=== PATIENT | male | born 1995 | race Caucasian/White ===

== ENCOUNTER 2017-12-26 13:31 | Emergency (ER) | payer BC, OTHER ==
[2017-12-26] MEDS ORDERED: Gelfoam 12-7 ADSORBABL SPONGE* 1 EA SPONGE TOPICAL ONE (14:10)
[2017-12-26 14:11] VITALS: BP 143/81
--- NOTE | 2017-12-26 14:31 | ED ---
Laceration/Wound HPI - HPI Summary HPI Summary: 22-year-old male presents with skin avulsion to the tip of left thumb. He states that cut it on a knife at work. The area continues to bleed. Last tetanus was 2 years ago. No other injury. Has full range of motion of thumb. No numbness or tingling. No medical conditions. - History of Current Complaint Pain Intensity: 0 <Xiomy Klein - Last Filed: 12/26/17 14:36> <Jamal Arce - Last Filed: 12/27/17 07:10> - History of Current Complaint Stated Complaint: CUT L THUMB Time Seen by Provider: 12/26/17 14:09 - Allergy/Home Medications Allergies/Adverse Reactions: Allergies Allergy/AdvReac Type Severity Reaction Status Date / Time Adhesive Tape Allergy Itching Verified 12/26/17 14:11 Home Medications: Home Medications NK [No Home Medications Reported] 12/26/17 [History Confirmed 12/26/17] PMH/Surg Hx/FS Hx/Imm Hx Endocrine/Hematology History: Denies: Hx Anticoagulant Therapy Respiratory History: Denies: Hx Asthma - Immunization History Date of Tetanus Vaccine: 2007 Infectious Disease History: No Infectious Disease History: Denies: Traveled Outside the [place] in Last 30 Days - Family History Known Family History: Positive: None - Social History Alcohol Use: Occasionally Hx Substance Use: No Substance Use Type: Reports: None Hx Tobacco Use: No Smoking Status (MU): Never Smoked Tobacco <Xiomy Klein - Last Filed: 12/26/17 14:36> Review of Systems Negative: Fever Negative: Chest Pain Negative: Shortness Of Breath Positive: Other - thumb skin avulsion All Other Systems Reviewed And Are Negative: Yes <Xiomy Klein - Last Filed: 12/26/17 14:36> Physical Exam Triage Information Reviewed: Yes Vital Signs On Initial Exam: Initial Vitals Temp Pulse Resp BP Pulse Ox 98.2 F 89 16 143/81 99 12/26/17 14:08 12/26/17 14:08 12/26/17 14:08 12/26/17 14:08 12/26/17 14:08 Vital Signs Reviewed: Yes Appearance: Positive: Well-Appearing Skin: Positive: Warm, Dry, Other - 1cm skin avulsion tip of left thumb near end of nail, not involving nailbed Head/Face: Positive: Normal Head/Face Inspection Eyes: Positive: Normal, Conjunctiva Clear ENT: Positive: Pharynx normal Respiratory/Lung Sounds: Positive: Clear to Auscultation, Breath Sounds Present Cardiovascular: Positive: Normal, RRR Musculoskeletal: Positive: Strength/ROM Intact - left thumb, Other - capillary refill<2 secs Neurological: Positive: Normal Psychiatric: Positive: Normal <Xiomy Klein - Last Filed: 12/26/17 14:36> Vital Signs On Initial Exam: Initial Vitals Temp Pulse Resp BP Pulse Ox 98.2 F 89 16 143/81 99 12/26/17 14:08 12/26/17 14:08 12/26/17 14:08 12/26/17 14:08 12/26/17 14:08 <Jamal Arce - Last Filed: 12/27/17 07:10> Procedures - Laceration/Wound Repair 1 Location: Other - left thumb Description: Irregular Length, Depth and Shape: 1cm skin avulsion of left thumb Irrigated w/ Saline (ccs): 100 Closure: Skin Adhesive - gelfoam Sterile Dressing Applied?: No - gelfoam, tube guaze, coband <Xiomy Klein - Last Filed: 12/26/17 14:36> Diagnostics - Vital Signs Vital Signs Temp Pulse Resp BP Pulse Ox 12/26/17 14:08 98.2 F 89 16 143/81 99 <Xiomy Klein - Last Filed: 12/26/17 14:36> - Vital Signs Vital Signs Temp Pulse Resp BP Pulse Ox 12/26/17 14:08 98.2 F 89 16 143/81 99 <Jamal Arce - Last Filed: 12/27/17 07:10> Laceration Repair Course/Dx - Course Course Of Treatment: 22-year-old male presents with skin avulsion to the tip of left thumb. He states that cut it on a knife at work. The area continues to bleed. Last tetanus was 2 years ago. No other injury. Has full range of motion of thumb. No numbness or tingling. No medical condition. On exam has one centimeters skin avulsion to left thumb. Neurovascular intact. Cleaned area and place Gelfoam gauze and Coban. told change pressure dressing in 2 days. told to return if the Patient develops any signs of infection. Patient understands agrees with plan. - Differential Dx Differental Diagnoses: Abrasion, Avulsion, Laceration <Xiomy Klein - Last Filed: 12/26/17 14:36> <Jamal Arce - Last Filed: 12/27/17 07:10> - Clinical Impression Provider Diagnoses: Avulsion of skin of left thumb Discharge - Sign-Out/Discharge Documenting (check all that apply): Discharge/Admit/Transfer - Billing Disposition and Condition Condition: GOOD Disposition: Home <Xiomy Klein - Last Filed: 12/26/17 14:36> - Billing Disposition and Condition Condition: GOOD Disposition: Home <Jamal Arce - Last Filed: 12/27/17 07:10> - Discharge Plan Condition: Good Disposition: HOME Patient Education Materials: Skin Avulsion (ED) Referrals: Prince Mclean MD [Primary Care Provider] - Additional Instructions: Keep area in pressure dressing for 48 hours, afterwards place bandaide on area and place coband (skin toned wrap) on area until scabs over gelfoam (white will fall off on own or will be absorbed Keep area covered after 48 hours Follow up with primary within 5 days Return to ED if develop any signs of infection such as fever, spreading redness , or pus formation or if bleed through pressure dressing or any new or worsening symptoms Per institutional requirements, I have reviewed the chart, however, I was not consulted specifically or made aware of this patient by the above midlevel provider. I did not personally evaluate, interact with , or disposition this patient.
== END 2017-12-26 14:45 | disposition home or self-care (01) ==
LOC: UCEAST 13:31
DX: S61.012A Laceration without foreign body of left thumb without damage to nail, initial encounter (principal); W26.0XXA Contact with knife, initial encounter; Y93.9 Activity, unspecified; Y92.89 Other specified places as the place of occurrence of the external cause; Y99.0 Civilian activity done for income or pay; Z91.048 Other nonmedicinal substance allergy status
CPT/HCPCS: 12001; 99211; A9270-GY; G0463

== ENCOUNTER 2018-01-28 11:48 | Emergency (ER) | payer BC ==
[2018-01-28 12:04] VITALS: BP 131/89
--- NOTE | 2018-01-28 12:17 | UC ---
Abdominal Pain Male HPI - HPI Summary HPI Summary: This is scribe Sandy Sarmiento documenting for attending Moi Guevara M.D. Pt is a 22 y/o M who presents to [facility] c/o acute on chronic right-sided abdominal pain. Pt has been experiencing pain intermittently for 3 years, worse yesterday. At 1100 yesterday, upon standing up out of his car the pain began, described as "like I pulled a muscle." Pain lasted all day yesterday and upon waking up this morning the pain is resolved. He did not take any medication for the pain and currently pain is completely resolved. Denies any other symptoms including N/V/D, fever, chills, dysuria, and penile discharge. Confirms he has a PCP (Dr. Mclean) though he has not been evaluated for this pain previously. He is being evaluated today due to ebing prompted by his mother. - History of Current Complaint Chief Complaint: UCRespiratory Stated Complaint: LOWER ABD PAIN Hx Obtained From: Patient Onset/Duration: Lasting Days - Yesterday, Resolved Severity Currently: None Pain Intensity: 0 Pain Scale Used: 0-10 Numeric Location: Other - RIght-sided Character: Other - Similar to pulling a muscle Aggravating Factor(s): Nothing Alleviating Factor(s): Spontaneous Resolution Associated Signs And Symptoms: Positive: Negative. Negative: Nausea, Vomiting, Diarrhea - Allergies/Home Medications Allergies/Adverse Reactions: Allergies Allergy/AdvReac Type Severity Reaction Status Date / Time Adhesive Tape Allergy Itching Verified 01/28/18 12:04 PMH/Surg Hx/FS Hx/Imm Hx - Additional Past Medical History Additional PMH: NEGATIVE PMHx: HTN, DM, CAD Other History Of: Negative For: Anticoagulant Therapy - Surgical History Surgical History: None - Family History Known Family History: Positive: Hypertension, Diabetes - Social History Alcohol Use: Occasionally Substance Use Type: None Smoking Status (MU): Light Every Day Tobacco Smoker Review of Systems Constitutional: Negative Skin: Negative Eyes: Negative ENT: Negative Respiratory: Negative Cardiovascular: Negative Gastrointestinal: Abdominal Pain - resolved Genitourinary: Negative Motor: Negative Neurovascular: Negative Musculoskeletal: Negative Neurological: Negative Psychological: Negative All Other Systems Reviewed And Are Negative: Yes Physical Exam - Summary Physical Exam Summary: VITAL SIGNS: Reviewed. GENERAL: Patient is a well-developed and nourished male who is lying comfortable in the stretcher. Patient is not in any acute respiratory distress. HEAD AND FACE: Normocephalic EYES: PERRLA, EOMI x 2. EARS: Hearing grossly intact. MOUTH: Oropharynx within normal limits. NECK: Supple, trachea is midline, no adenopathy, no JVD, no carotid bruit. CHEST: Symmetric, no tenderness at palpation LUNGS: Clear to auscultation bilaterally. No wheezing or crackles. CVS: Regular rate and rhythm, S1 and S2 present, no murmurs or gallops appreciated. ABDOMEN: Soft, non-tender. Bowel sounds are normal. Right inguinal hernia, reducible EXTREMITIES: Full ROM in all major joints, no edema, no cyanosis or clubbing. NEURO: Alert and oriented x 3. No acute neurological deficits. Speech is normal and follows commands. SKIN: Dry and warm Triage Information Reviewed: Yes Vital Signs: Initial Vital Signs Temp 99.8 F 01/28/18 12:00 Pulse 95 01/28/18 12:00 Resp 18 01/28/18 12:00 BP 131/89 01/28/18 12:00 Pulse Ox 98 01/28/18 12:00 Vital Signs Reviewed: Yes Abd Pain Male Course/Dx - Course Course Of Treatment: The patient was found to have increased BP in UC. The patient will follow up with PCP for better control of BP. Patient is a 22-year- old male who presents to the urgent care with a chief complaint of having right lower abdominal pain. The patient is been having this pain for the last 3 years intermittently. This episode started yesterday. He thinks he has a pulled muscle. The physical exam the patient has an right inguinal hernia. The hernia is reducible. Therefore the patient will be discharged home with follow-up with surgeon. He was given instructions that if the pain increases, he is unable to reduce the hernia he should immediately go to the emergency room to rule out incarcerated hernias. The patient understands and agrees. At this point the patient is with no pain the hernia is reduced therefore he will be discharged home with follow-up with PCP and surgeon. The patient is hemodynamically stable alert and oriented 3. - Differential Dx/Clinical Impression Provider Diagnoses: Non-incarcerated inguinal hernia Discharge - Sign-Out/Discharge Documenting (check all that apply): Patient Departure - Discharge - Discharge Plan Condition: Stable Disposition: HOME Patient Education Materials: Inguinal Hernia (ED) Referrals: Prince Mclean MD [Primary Care Provider] - Alden Sanchez MD [Medical Doctor] - (Call the surgeon on tuesday to set up an appointment. ) Additional Instructions: GO IMMEDIATELY TO THE EMERGENCY DEPARTMENT IF YOU DEVELOP ANY PAIN, FEVER, NAUSEA, AND VOMITING. - Billing Disposition and Condition Condition: STABLE Disposition: Home
== END 2018-01-28 12:44 | disposition home or self-care (01) ==
LOC: UCEAST 11:48
DX: K40.90 Unilateral inguinal hernia, without obstruction or gangrene, not specified as recurrent (principal); Z91.048 Other nonmedicinal substance allergy status; Z82.49 Family history of ischemic heart disease and other diseases of the circulatory system; Z83.3 Family history of diabetes mellitus; F17.200 Nicotine dependence, unspecified, uncomplicated
CPT/HCPCS: 99211; G0463

== ENCOUNTER → 2018-02-13 08:15 | Day surgery (SDC) | payer BC ==
[~2018-02-13 08:15] MED LIST: Buffered Lidocaine 0.9% SYRIN* 5 ML/SYR SYRINGE INTRADERM ONE; Dexamethasone IV* 4 MG/ML 1 ML (4 MG) IV SLOW PU ONE; Dexamethasone IV* 4 MG/ML 1 ML (4 MG) ONE; DiMENhydriNATE IV* 50 MG/ML VIAL IV PUSH PRN; Famotidine IV* 10 MG/ML 2 ML (20 mg) IV ONE; Famotidine IV* 10 MG/ML 2 ML (20 mg) ONE; Ketorolac INJ* 30 MG/ML 1 ML VIAL ONE; Lidocain 1% EPI 1:100,000 * 30 ML MDV ONE; Midazolam* 1 MG/ML 2 ML VIAL (2 MG) ONE; Naloxone* 0.4 MG/ML 1 ML VIAL IV PRN; Ondansetron INJ* 2 MG/ML VIAL ONE; Propofol* 10 MG/ML 20 ML BTL IV PUSH ONE; Ropivacaine (OR use only) 2 MG/ML 10 ML ONE; ceFAZolin 2 GM PREMIX (*) 2 GM/50 ML BAG IVPB ONE; fentaNYL* 50 MCG/ML 2 ML VIAL (100 MCG VIAL) IV PRN; fentaNYL* 50 MCG/ML 2 ML VIAL (100 MCG VIAL) ONE; oxyCODONE/Acetamin 5/325 MG* TAB PO PRN
--- NOTE | 2018-02-13 11:45 | OP ---
Operative Report - Blank - Operative Report Date of Operation: 02/13/18 Note: Brief Operative Note Preoperative Dx: Right inguinal hernia. Postoperative Dx: Same. Procedure: Right inguinal hernia repair with mesh. Anesthesia: GET. Surgeon: Laura. Assist: DREW Ramirez and BEKA Kemp. EBL: Less than 50 mL. Fluids: 1000 LR. Drains: None. Specimen: None. Findings: Dictated.
[2018-02-13 12:46] VITALS: BP 127/87
--- NOTE | 2018-02-13 23:51 | OP ---
DATE OF OPERATION: 02/13/18 - [facility] DATE OF : 89 SURGEON: Alden Sanchez MD ELECTRONIC [employer] SYSTEM OPERATOR: DREW Hurst ANESTHESIOLOGIST: Dr. Cates. ANESTHESIA: General with local. PRE-OP DIAGNOSIS: Large right inguinal hernia. POST-OP DIAGNOSIS: Large right indirect inguinal hernia. OPERATIVE PROCEDURE: Open repair with mesh of a large right indirect inguinal hernia. ESTIMATED BLOOD LOSS: Minimal. IV FLUIDS: 1 L of crystalloid. SPECIMENS: None. WOUND CLASSIFICATION: 1. DRAINS: None. FINDINGS: The patient had a large longstanding right indirect inguinal hernia extending down into the scrotum. There was no evidence of a direct inguinal hernia. DESCRIPTION OF PROCEDURE: Written informed consent was obtained and preoperative antibiotics were administered. The right groin was marked with indelible ink. The patient was taken to the operating room, placed in the supine position. Sequential compression devices and a warming blanket were applied. General anesthesia was administered. A Jones catheter was also inserted. The right groin and lower abdomen as well as the entire genitalia including the scrotum were prepped and draped into the field. This was a large right inguinoscrotal hernia and I was not able to completely reduce the hernia preoperatively or even after administration of anesthesia. A 0.25% Marcaine was infiltrated in the right groin and an oblique incision was made and carried down through the Consuelo's fascia. The external oblique aponeurosis was identified and opened in the direction of its fibers. The spermatic cord and its contents which also appeared to include a large sac. Inguinal hernia sac was encircled with some difficulty at the pubic tubercle with a one quarter inch Mai drain. I was able to free up the cord and its contents including the hernia and I visualized the direct floor. This appeared to be without evidence of hernia. Next, the cord structures were carefully identified and we were able to identify the structures and prevent injuries including the vas deferens and prevent injury to the cord structures throughout the remainder of the case. Upon reducing the hernia sac which we identified was quite large and redundant up from the scrotum. The testicle was somewhat adherent to this and once this was from the cord structures and the testicle, the testicle was placed back down into the scrotum in its usual anatomic position without difficulty. The hernia sac was then dissected up into the internal ring, which as expected was quite large and appeared to contain omentum but not bowel and was reduced back through the internal ring. There was also a cord lipoma which was excised, but not sent for specimen. With this dissection complete, I placed several 3-0 Vicryl sutures to plicate the internal ring in preparation for mesh placement. The Covidien ProGrip mesh was then placed and sutured to the pubic tubercle with 0 Polysorb suture. It was then placed to cover the conjoint tendon superiorly, the inguinal ligament inferiorly, and the musculature laterally and the internal ring was reconstructed to what was felt to be the appropriate size. The mesh sat nicely without evidence of wrinkling or tension. Once this was complete, hemostasis was assured. Additional marking was infiltrated. The external oblique aponeurosis was closed with a running 3-0 Polysorb suture. The Consuelo's fascia was closed with a running 3-0 Vicryl suture. The skin was approximated with subcuticular 4-0 Vicryl suture. Steri- Strips and sterile dressings were applied. The patient tolerated the procedure well, was taken to the recovery room in stable condition. [id number]/[facility] #: [id number] DUSTIN
== END | disposition home or self-care (01) ==
LOC: OR 08:15
PROVIDERS: ATTEND Surgery
DX: K40.90 Unilateral inguinal hernia, without obstruction or gangrene, not specified as recurrent (principal); Z72.0 Tobacco use; Z68.30 Body mass index [BMI] 30.0-30.9, adult
CPT/HCPCS: C1781; J0690; J1100; J1885; J2250; J2405; J2704; J2795; J3010

== ENCOUNTER 2018-03-30 12:28 | Emergency (ER) | payer BC ==
--- NOTE | 2018-03-31 07:15 | UC ---
- Progress Note Progress Note: LWBS. NO IMAGING DONE. Discharge - Sign-Out/Discharge Documenting (check all that apply): Post-Discharge Follow Up All imaging exams completed and their final reports reviewed: No Studies - Discharge Plan Condition: Stable Disposition: LEFT WITHOUT BEING SEEN Referrals: Prince Mclean MD [Primary Care Provider] - - Billing Disposition and Condition Condition: STABLE Disposition: Left Without Being Seen
== END 2018-03-30 13:07 | disposition left against medical advice (07) ==
LOC: UCEAST 12:28
DX: Z11.1 Encounter for screening for respiratory tuberculosis (principal); Z53.21 Procedure and treatment not carried out due to patient leaving prior to being seen by health care provider

== ENCOUNTER 2020-03-23 11:32 | Observation (INO) ==
[2020-03-23] MEDS ORDERED: NS 0.9% 1000 ml BAG 1,000 ML IV ONE (11:48)
[2020-03-23] MEDS ORDERED: Ondansetron 4 mg VIAL 2 MG/ML 2 ml VIAL IV ONE (11:48)
[2020-03-23 12:09] LABS: ABS Basophils 0.1 10^3/ul (0-0.2); ABS Monocytes 1.1 10^3/ul (0-0.8); Eosinophil % 0.3 %; Hematocrit 48 % (42-52); Hemoglobin 16.9 g/dL (14.0-18.0); Lymphocyte % 14.9 %; Mean Corpuscular HGB Conc 35 g/dL (31-36); Mean Corpuscular Hemoglobin 31 pg (27-31); Mean Corpuscular Volume 89 fL (80-94); Mean Platelet Volume 8.7 fL (7.4-10.4); Platelet Count 166 10^3/uL (150-450); Red Blood Count 5.41 10^6 /uL (4.18-5.48); Red Cell Distribution Width 14 % (10-15); White Blood Count 13.1 10^3/uL (3.5-10.8)
[2020-03-23 12:25] LABS: Albumin 4.7 g/dL (3.2-5.2); Albumin/Globulin Ratio 1.5 (1-3); BUN/Creatinine Ratio 12.4 (8-20); C Reactive Protein 192.26 mg/L (<8.01); Calcium 9.6 mg/dL (8.6-10.3); EGFR African American 103.3 (>60); EGFR Non-African American 85.4 (>60); Globulin 3.1 g/dL (2-4); Potassium 3.7 mmol/L (3.5-5.0); Total Bilirubin 1.2 mg/dL (0.2-1.0); Total Protein 7.8 g/dL (6.4-8.9)
[2020-03-23] MEDS ORDERED: Iohexol 300 (CONTRAST) 10 ML SDV IV ONE (13:51)
[2020-03-23] MEDS ORDERED: Piperacillin/Tazobac ADVAN 3.375 GM in NS 0.9% 100 ml BAG 100 ML IVPB ONE (15:42)
[2020-03-23] MEDS ORDERED: Lactated Ringers 1000 ml BAG 1,000 ML IV SCH (17:00)
[2020-03-23] MEDS ORDERED: Lidocaine 2% PF 5 ML VIAL ONE (17:12)
[2020-03-23] MEDS ORDERED: Rocuronium 50 mg VIAL 10 mg/ml 5 ml VIAL (50 mg) ONE (17:12)
[2020-03-23] MEDS ORDERED: Dexamethasone IV 4 MG/ML VIAL 1 ml VIAL ONE (17:12)
[2020-03-23] MEDS ORDERED: Ondansetron 4 mg VIAL 2 MG/ML 2 ml VIAL ONE (17:12)
[2020-03-23] MEDS ORDERED: HYDROmorphone 1 MG/1 ML SYRINGE ONE (17:13)
[2020-03-23] MEDS ORDERED: Bupivacaine 0.25% SDV 30 ML ONE (17:17)
[2020-03-23] MEDS ORDERED: Naloxone 0.4 mg VIAL 0.4 mg/ml 1 ml VIAL IV PRN (18:08)
[2020-03-23] MEDS ORDERED: HYDROmorphone 1 MG/1 ML SYRINGE IV PRN (18:08)
[2020-03-23] MEDS ORDERED: Ondansetron 4 mg VIAL 2 MG/ML 2 ml VIAL IV PRN (18:08)
[2020-03-23 18:59] VITALS: BP 122/65
== END 2020-03-23 18:59 | disposition home or self-care (01) ==
LOC: AA 11:32 → ED 11:32 → AA 16:52
PROVIDERS: ADMIT Surgery; ATTEND Surgery